=== PATIENT | male | born 1975 | race Hispanic/Latino ===

== ENCOUNTER 2025-03-25 12:08 | Emergency (ER) | payer SELFPAY | END 2025-03-25 14:40 | disposition home or self-care (01) | LOC: ERS 12:08 | DX: S60.412A Abrasion of right middle finger, initial encounter (principal); S00.81XA Abrasion of other part of head, initial encounter; M25.561 Pain in right knee; R29.700 NIHSS score 0; V59.3XXA Occupant (driver) (passenger) of pick-up truck or van injured in unspecified nontraffic accident, initial encounter; Y92.410 Unspecified street and highway as the place of occurrence of the external cause; Z75.8 Other problems related to medical facilities and other health care | CPT/HCPCS: 70450; 71045; 72125; 96372 ==